=== PATIENT | female | born 1935 | race Caucasian/White ===

== ENCOUNTER 2018-10-01 17:51 | Inpatient (IN) | payer MEDICARE ==
[~2018-10-01] VITALS: Ht 167.6 cm; Wt 54.3 kg
[2018-10-01] MEDS ORDERED: LEVSOD75 PO (18:26)
[2018-10-01] MEDS ORDERED: METO25ER PO (18:27)
[2018-10-01] MEDS ORDERED: LISI5 PO (18:27)
[2018-10-01] MEDS ORDERED: ASPI81CH PO (18:27)
[2018-10-01] MEDS ORDERED: LOVA40 PO (18:28)
[2018-10-01] MEDS ORDERED: ALLO300 PO (18:29)
[2018-10-01] MEDS ORDERED: CYAN500 PO (18:30)
[2018-10-01 18:31] LABS: BASOPHILS ABSOLUTE AUTO 0.02 K/mm3 (0.00-0.23); BASOPHILS PERCENT AUTO 0 % (0-2); EOSINOPHILS ABSOLUTE AUTO 0.02 K/mm3 (0.00-0.68); EOSINOPHILS PERCENT AUTO 0 % (0-6); Hematocrit 33.3 % (33.0-51.0); Hemoglobin 10.7 g/dL (11.5-16.0); IMMATURE GRAN ABSOLUTE AUTO 0.07 K/mm3 (0.00-0.10); IMMATURE GRAN PERCENT AUTO 1 % (0-1); LYMPHOCYTES ABSOLUTE AUTO 1.17 K/mm3 (0.84-5.20); LYMPHOCYTES PERCENT AUTO 13 % (21-46); MONOCYTES ABSOLUTE AUTO 0.46 K/mm3 (0.16-1.47); MONOCYTES PERCENT AUTO 5 % (4-13); Mean Corpuscular HGB 31.8 pg (26.0-34.0); Mean Corpuscular HGB Conc 32.1 g/dL (31.5-36.5); Mean Corpuscular Volume 99 fL (80-100); Mean Platelet Volume 10.2 fL (9.1-12.4); NEUTROPHILS ABSOLUTE AUTO 7.53 K/mm3 (1.96-9.15); NEUTROPHILS PERCENT AUTO 81 % (41-73); Platelet Count 212 K/mm3 (150-400); RDW Coefficient Variation 13.2 % (11.7-14.2); RDW Standard Deviation 47.9 fL (35.1-46.3); Red Blood Cell Count 3.36 M/mm3 (3.80-5.20); White Blood Cell Count 9.27 K/mm3 (4.00-11.30)
[2018-10-01 19:10] LABS: Albumin/Globulin Ratio 1.4 (0.8-1.8); Bilirubin, Total 0.7 mg/dL (0.1-1.0); Bun/Creatinine Ratio 23.2 (12.0-20.0); Calcium, Blood 7.7 mg/dL (8.5-10.1); Creatinine, Blood 0.99 mg/dL (0.40-1.00); Globulin, Blood 2.2 g/dL (2.2-4.0); Potassium, Blood 4.1 mmol/L (3.5-5.5); Total Protein, Blood 5.2 g/dL (6.4-8.2)
[2018-10-01 19:18] LABS: International Normalized Ratio 1.14; Prothrombin Time Results 11.9 Sec (9.7-11.5)
[2018-10-02 03:48] LABS: Hematocrit 41.7 % (33.0-51.0); Hemoglobin 13.4 g/dL (11.5-16.0); Mean Corpuscular HGB 31.8 pg (26.0-34.0); Mean Corpuscular HGB Conc 32.1 g/dL (31.5-36.5); Mean Corpuscular Volume 99 fL (80-100); Mean Platelet Volume 10.1 fL (9.1-12.4); Platelet Count 226 K/mm3 (150-400); RDW Coefficient Variation 13.3 % (11.7-14.2); RDW Standard Deviation 48.1 fL (35.1-46.3); Red Blood Cell Count 4.22 M/mm3 (3.80-5.20); White Blood Cell Count 13.74 K/mm3 (4.00-11.30)
[2018-10-02 04:06] LABS: Albumin, Blood 3.9 g/dL (3.4-5.0); Albumin/Globulin Ratio 1.3 (0.8-1.8); Bilirubin, Total 0.8 mg/dL (0.1-1.0); Bun/Creatinine Ratio 19.3 (12.0-20.0); Calcium, Blood 8.6 mg/dL (8.5-10.1); Creatinine, Blood 1.09 mg/dL (0.40-1.00); Globulin, Blood 3.1 g/dL (2.2-4.0); Potassium, Blood 4.4 mmol/L (3.5-5.5)
--- NOTE | 2018-10-02 05:46 | NUR ---
SHIFT SUMMARY PT WAS A NEW ADMIT DURING THE NIGHT, ADMITTED FOR AN ACUTE ISCHEMIC CVA. HER L SIDE WAS FLACCID ON ARRIVAL. SHE ALSO HAD A L SIDE FACIAL DROOP AND VERBAL APHASIA. THE PT IS VERY RESTLESS AND FIDGETING IN THE BED, PICKING AT HER BLANKET AND SCRATCHING AT HER LEG. SHE WILL OCCASIONALLY ANSWER QUESTIONS WITH UNDERSTANDABLY WITH ONE TO TWO WORD ANSWERS. THE PT'S BP WAS ELEVATED ON ADMISSION, BETWEEN 180-220S SYSTOLICALLY. THE LEVEL OF ALLOWED PERMISSIVE HYPERTENSION WAS NOT NOTED, THE HOSPITALIST DR SHABAZZ WAS CONSULTED. PRN HYDRALAZINE WAS ORDERED FOR ANY SBP GREATER THAN 210. DURING AM VITALS, THE PT'S BP WAS 216/103, AND SHE COMPLAINED THAT HER "HEAD HURTS". SHE WAS GIVEN 10 MG OF HYDRALAZINE, AND ON RECHECK HER BP CAME DOWN TO 147/84. SHE DID APPEAR MORE COMFORTABLE AND DID NOT REPORT ANY PAIN AT THAT TIME. ALL OTHER VITALS REMAINED STABLE. NO OTHER ACUTE CHANGES IN PT CONDITION NOTED SINCE ADMISSION. WILL CONTINUE TO MONITOR AND TREAT PER EMAR.
--- NOTE | 2018-10-02 14:28 | NUR ---
PALLIATIVE CARE AND MEET WITH FAMILY TO DISCUSS PLAN OF CARE. PT BECOMES AGITATED WHEN WEARING HOSPITAL GOWN AND SO JUST SHEET OVER HER AT THIS TIME. ATTENDS IN PLACE. PT CANNOT LAY FLAT OR SHE VOMITS AND DOES NOT PROTECT HER AIRWAY. VITAL SIGNS SHOW ELEVATED BP. PT DOES NOT REPSOND TO VERBAL STIMULI OR PAINFULL STIMULI. SHE MOANS AND THRASHES.
--- NOTE | 2018-10-02 15:00 | NUR ---
Initial palliative care consult: Long conversation today with pt's two daughters and two son-in-laws outside of pt's room per family request. Pt was admitted yesterday with a CVA which is extending. Pt's family has questions about prognosis, future care planning, and finances. Family appears very attentive and supportive and asking appropriate questions. Explained that time is needed for Coral's body to show us which direction she will go, whether that is continued decline or some signs of improvement. Pt is currently nonverbal, family reports that she was talking to them yesterday. Coral is picking at her blankets and per nsg staff becomes more aggitated when she has a gown on. Currently Coral is covered with a sheet which she is leaving on during my visit. Coral's left side is flaccid and she is having trouble protecting her airway when she is laid flat for care. Coral's daughters report that she lives alone but close to family. They monitor her activity with a baby monitor which is how they knew she needed assistance yesterday. Her daughters report that Coral is independent, managed her own bills, and was driving up until yesterday. They report Coral likes to be in control of "things." Currently Coral's state is a very big change and her family is trying to process that big change. They have financial questions, so a message was left for RN Heladio BAIG, to come speak with them. They would like to speak with Dr. Malcolm, so nursing is contacting Dr. Malcolm. This com writer was present when Dr. Malcolm came to evaluate pt and talk with family. Dr. Malcolm exlained pt's very large, extending CVA and answered questions. Pt's family states that pt was clear that her wishes were not to be resusitated and to not live in a vegetative state. They stated that Coral has talked about being ready to go and see her who severn years ago. They report that recently she has "Lost her will to live." Dr. Malcolm asked family to consider next step in decision making and explained that the next few days will be critical in determining the extent of her CVA. Discussed comfort care as an option after family met with Dr. Malcolm. Booklets on considering comfort care and hard choices for loving people given to pt's family. PC to follow up with pt's family to assist with future care planning and emotional support.
--- NOTE | 2018-10-02 15:12 | NUR ---
REPORT TO PETE SANCHEZ WHO WILL ASSUME CARE AND COMFORT OF THIS PATIENT
--- NOTE | 2018-10-02 15:43 | NUR ---
UPDATE: Assumed care of Pt at 1500. Pt laying in bed with eyes closed. Does not open them. L arm and leg have no movement, L side facial droop. Pt constantly picking with her R hand. BP hypertensive. Will treat per orders when within peramitors. Pt changed and repositioned. Daughter at bedside. Will continue to monitor.
--- NOTE | 2018-10-02 19:37 | NUR ---
SHIFT SUMMARY: Pt had a small BM and multiple incontinent voids at the end of this shift. During a reposition at about 1645 pt vomited and aspirated on her vomit. Was able to suction out most of vomit, at that time pt bit down on the suction and broke tooth, which did fall out of mouth. Since that Pt has been much more gurgally. Able to suction out some of her sacreations and biox has remained >90%. Duaghter at bedside very tearful. Pt still picking and pulling at all lines, linens, and scratching at skin. Report given to night RN.
--- NOTE | 2018-10-03 06:43 | NUR ---
Rn summary: Patient at beginning of shift was restless, picking at clothes and brushing left side of face. Pt would not leave clothes on. Family did go home at 1930. Pt BP has been monitored. diastolic has been higher, parameters for apresoline was sys > 210. Pt did require apresoline 10mg IV at 0415 for BP of 213/148. Repeat BP was 191/73 at 0449. Pt has been incontinent of urine x2. Over the course of the shift pt became less restless, more ridged, moved only when BP was taken. Pt O2 sats started dropping slowly, started on 2 liters NC at 0310, on 4 liters via mouth by 0400. Message left with family to call due to change. Pt CT showed CVA was expanding yesterday, course is expected. Did talk with son in law at 0550 and he was given update on changes to PT condition during the night. Charge nurse Brad has been updated thoughout the shift on pt BP and respiratory status. Will continue to monitor closely.
--- NOTE | 2018-10-03 16:42 | NUR ---
father ankita in to visit pt. pt unresponsive, no grimace respitrations even unlabored
--- NOTE | 2018-10-03 17:26 | NUR ---
SHIFT SUMMARY THE PATIENT HAS BEEN MOSTLY UNRESPONSIVE SINCE LAST SHIFT. THE PATIENT VITALS ARE WNL, AND WITH LUNGS SOUNDS THAT WERE COARSE THOURGHOUT. THE PATIENT'S FAMILY DIDN'T WANT THE PATIENT MOVED TO COMFORT CARE UNTIL TOMORROW. THE PATIENT HAS BEEN REPOSSITIONED THIS SHIFT TIME. THE PATIENT STATED SHOWING SIGNS OF NEEDING SUCTIONING OFTEN AND A REQUEST FOR ATROPINE WAS SENT TO DR. DE AND IS WAS APPROVED BY THE DOCTOR. THE PATIENT CONTINUES TO REST, WILL CONTINUE TO MONITOR,
--- NOTE | 2018-10-03 20:00 | NUR ---
ASSUMED CARE OF PT. PT RESPONDS TO PAINFUL STIMULI BY MOANING. REANNA ANDERSON. PT ON 4L NC. BREATHING IS IRREGULAR WITH MOMENTS OF APNEA. SATS REMAINING ABOVE 92% AT THIST TIME. PUPILS UNRESPONSIVE. HR IS NSR WITH A RATE IN THE 100'S. BP ELEVATED, BUT BELOW PARAMETERS TO MEDICATE WITH HYDRALIZINE. WILL CONTINUE TO MONITOR. PT SHOES NO SIGNS OR SYMPTOMS OF PAIN AT THIS TIME.
--- NOTE | 2018-10-03 20:30 | NUR ---
PT DESATURATING TO THE LOW 80'S. NC INCREASED TO 5L WITH NO CHANGES IN SATURATION. NON REBREATHER PUT ON WITH 13L. 02 SATS STILL DECREASING. RESPIRATORY THERAPY CALLED IN. PT NOT PROTECTING AIRWAY. PT AGONAL BREATHING. AFTER TWO MINUTES PT GASPS AND STARTS BREATHING MORE REGULARLY. 02 SATS INCREASE TO ABOVE 92%. FAMILY IS CALLED DUE TO CHANGES. FAMILY STATES THEY WILL COME IN. WILL CONTINUE TO MONITOR CLOSELY.
--- NOTE | 2018-10-03 22:45 | NUR ---
FAMILY AT BEDSIDE. PT NO LONGER BREATHING. CODE STATUS DISCUSSED WITH FAMILY. FAMILY STATES PT DOES NOT WANT LIFE SAVING MEASURES. CHARGE NURSE NIRAV NOTIFIED. NO HEART SOUNDS HEARD UPON AUSCULTATION. PT AT 2240. HOSPITALIST NOTIFIED. [facility] THE [facility] IN [place] WILL BE CALLED.
--- NOTE | 2018-10-04 00:38 | NUR ---
PT PICKED UP BY [facility]. BELONGINGS TAKEN BY FAMILY.
== END 2018-10-04 00:35 | DRG 65 ==
LOC: ER 17:51 → PCU 19:39
PROVIDERS: Emergency Medicine; ADMIT Internal Medicine
DX: I63.511 Cerebral infarction due to unspecified occlusion or stenosis of right middle cerebral artery (principal); G81.94 Hemiplegia, unspecified affecting left nondominant side; E03.9 Hypothyroidism, unspecified; Z51.5 Encounter for palliative care; F40.00 Agoraphobia, unspecified; E78.5 Hyperlipidemia, unspecified; M10.9 Gout, unspecified; I10 Essential (primary) hypertension; Z66 Do not resuscitate; Z79.82 Long term (current) use of aspirin; I63.81 Other cerebral infarction due to occlusion or stenosis of small artery; Z86.73 Personal history of transient ischemic attack (TIA), and cerebral infarction without residual deficits; I63.59 Cerebral infarction due to unspecified occlusion or stenosis of other cerebral artery; R40.2424 Glasgow coma scale score 9-12, 24 hours or more after hospital admission
CPT/HCPCS: 36415; 70450; 70496; 70498; 71045; 80053; 85025; 85027; 85610; 85730; 92610; 93005; 93010; 93306; 96374-59; 99285-25; J0360; J1650; J2405; J7030; Q9967